=== PATIENT | male | born 1995 | race Caucasian/White ===

== ENCOUNTER 2022-04-19 15:50 | Outpatient (CLI) | payer SELFPAY ==
[2022-04-19 18:48] LABS: Chlamydia DNA Amplified* NOT DETECTED (No Detected); GC DNA Amplified* NOT DETECTED (No Detected)
== END 2022-04-19 15:51 | disposition home or self-care (01) ==
PROVIDERS: Visit Provider Family Medicine
DX: Z11.3 Encounter for screening for infections with a predominantly sexual mode of transmission (principal)
CPT/HCPCS: 86703; 87491; 87591

== ENCOUNTER 2024-12-14 15:13 | Emergency (ER) | payer OTHER, SELFPAY ==
[2024-12-14 15:17] VITALS: BP 126/84; PULSE 75; RESP 20; TEMP 36.1; O2SAT 97; BMI 31.4
--- NOTE | 2024-12-14 15:25 | ED_ITS ---
HPI - General Adult General Chief complaint: Extremity Pain/Injury, Upper Stated complaint: Nail through R finger Time Seen by Provider: 12/14/24 15:24 History of Present Illness HPI narrative: c/o nail in finger pt. was at work and the nail gun jumped and double tapped the board sending a second 3 nail through the pt. right index finger. pt. hand still attached to the board in triage. 29-year-old young man presenting to the emergency department following an injury with a pneumatic nailer. Was working when the nailer jumped and apparently double tapped the board pressure and ended up in failing his right index finger. He has not managed to get his finger free. No significant bleeding. Is experiencing some distal numbness Related Data Home Medications ?Medication ?Instructions ?Recorded ?Confirmed No Known Home Medications 04/19/2211/18 Allergies Allergy/AdvReac Type Severity Reaction Status Date / Time No Known Drug Allergies Allergy Verified 12/14/24 15:16 Review of Systems Status of ROS: Reports: 6 or more systems reviewed and unremarkable except as noted in History and below PFSH PFSH Surgical History S/P LASIK (laser assisted in situ keratomileusis) Family History Other Colon cancer Depression Social History Smoking Status: Never smoker Do you use any of these nicotine containing products: None Second hand tobacco smoke exposure: No How often do you have a drink containing alcohol: never How often do you have six or more drinks on one occasion: Never AUDIT-C Alcohol total score: 0 Non-prescribed substance use: denies use service: No Exam Narrative: Exam Narrative: Seated in exam bed. 2 x 4 on his lap and gloved right index finger adhered to 1 of 2 clean nails. No bleeding. Const: Vital Signs, click to edit/add: Vital Signs - 24 hr 12/14/24 15:17 Temperature 96.9 F L Pulse Rate [Pulse Oximeter] 75 Respiratory Rate 20 Blood Pressure [Ri ght Upper Arm] 126/84 Pulse Oximetry 97 Oxygen Delivery Me thod Room Air Documenting provider has reviewed patient's vital signs: yes Course Vital Signs Vital signs: Initial Vital Signs Temperature 96.9 F L 12/14/24 15:17 Temperature Source Temporal Artery Scan 12/14/24 15:17 Pulse Rate 75 12/14/24 15:17 Respiratory Rate 20 12/14/24 15:17 Blood Pressure 126/84 12/14/24 15:17 Blood Pressure Mean 98 12/14/24 15:17 Blood Pressure Position Sitting 12/14/24 15:17 Pulse Oximetry 97 12/14/24 15:17 Oxygen Delivery Method Room Air 12/14/24 15:17 Vital Signs Temperature 96.9 F L 12/14/24 15:17 Pulse Rate 75 12/14/24 15:17 Respiratory Rate 20 12/14/24 15:17 Blood Pressure 126/84 12/14/24 15:17 Pulse Oximetry 97 12/14/24 15:17 Oxygen Delivery Method Room Air 12/14/24 15:17 Temperature 96.9 F L 12/14/24 15:17 Pulse Rate 75 12/14/24 15:17 Respiratory Rate 20 12/14/24 15:17 Blood Pressure 126/84 12/14/24 15:17 Pulse Oximetry 97 12/14/24 15:17 Oxygen Delivery Method Room Air 12/14/24 15:17 Medical Decision Making MDM Narrative Medical decision making narrative: Is having of discomfort that will need to anesthetize before manipulate this fur ther. Cut glove down from wrist to expose for digital block. Cleansed area with alcohol swab and injected bupivacaine 1 mL each side. Clean nail in fresh board but - tetanus risk is low. Requested x-rays of the right index finger. By my independent review it looks like it is the more proximal nail that has punctured the finger of the middle phalanx. I think it is adjacent to the bone distal aspect of the middle phalanx. By the time I returned, anesthetic had worn off some. Or did inject again with 1 ML on each side a little more distal than original injection. Excellent anesthesia achieved. Quick forceful full by me and hand/finger is free of this nail. There is a non bleeding puncture in the radial side middle phalanx. Has intact flexion and extension of the finger. Placed in a Hibiclens water solution and further scrubbed with same. Wrapped with antibiotic ointment and a Band-Aid. Does not think he will need a splint. I am inclined to agree. Not unreasonable concern expressed of potential infection. Prophylax with some antibiotics. See patient discharge plan for further discussion Monitor for spreading redness after 2 days, marked increase in pain or swelling, purulent drainage. Antibiotic ointment with Band-Aid for a few days. Ibuprofen and elevation for comfort. I am prescribing prophylactic antibiotics. Cephalexin from [facility]. Medical Records Medical records reviewed: Yes I reviewed the patient's medical records Discharge Plan Discharge Clinical Impression: Foreign body finger, Puncture wound of finger, right Patient Disposition: Home, Self-Care Condition: Improved Additional Instructions: Monitor for spreading redness after 2 days, marked increase in pain or swelling, purulent drainage. Antibiotic ointment with Band-Aid for a few days. Ibuprofen and elevation for comfort. I am prescribing prophylactic antibiotics. Cephalexin from [facility]. Prescriptions: No Action No Known Home Medications Follow Up/Referrals: Provider,Not a Local [Primary Care Provider, Family Practice] Stand Alone Forms: [employer] Info Instructions
--- NOTE | 2024-12-14 15:47 | CRLHL7_ITS ---
For Patients: As a result of the Cures Act, medical imaging exams and procedure reports are released immediately into your electronic medical record. You may view this report before your referring provider. If you have questions, please contact your health care provider. Indication: Nail injury. Technique: Three views of the right 2nd finger. Comparison: None. Impression: Overlying material obscures detail. A nail is seen spanning the middle phalanx on all 3 projections. A 2nd nail is seen along the soft tissues adjacent to the tuft of the distal phalanx. Overlying material limits evaluation for fracture with no definitive evidence of fracture. Joint spaces are normal. Dictated by Milton Cooper MD @ 12/14/2024 4:09:04 PM (Electronically Signed)
== END 2024-12-14 17:29 | disposition home or self-care (01) ==
PROVIDERS: Emergency Provider Family Medicine
DX: S61.240A Puncture wound with foreign body of right index finger without damage to nail, initial encounter (principal); W45.0XXA Nail entering through skin, initial encounter; Y99.0 Civilian activity done for income or pay
CPT/HCPCS: 10120; 73140; 99283; 99284